=== PATIENT | male | born 1980 | race Caucasian/White ===

== ENCOUNTER 2019-04-09 09:29 | Emergency (ER) | payer OTHER ==
[2019-04-09 09:53] VITALS: BP 123/85; PULSE 107; RESP 20; TEMP 98.1
--- NOTE | 2019-04-09 10:48 | XR ---
EXAMINATION TYPE: XR ankle complete LT DATE OF EXAM: 04/09/2019 COMPARISON: None HISTORY: Pain following down 4 steps yesterday TECHNIQUE: Three-view left ankle FINDINGS: Ankle mortise is intact. There is diffuse soft tissue swelling over the ankle There is a comminuted fracture the distal metadiaphyseal fibula. On the lateral projection a posterior tibial fracture should be considered. IMPRESSION: 1. Comminuted distal metadiaphyseal fibular fracture. 2. Posterior tibial fracture likely present.
--- NOTE | 2019-04-09 10:48 | ED ---
Lower Extremity Injury HPI - General Chief Complaint: Extremity Injury, Lower Stated Complaint: fall, ankle injury Time Seen by Provider: 04/09/19 09:55 Source: patient, family, RN notes reviewed Mode of arrival: wheelchair Limitations: no limitations - History of Present Illness Initial Comments: 38-year-old male presents emergency Department chief complaint left ankle injury. Patient states that he fell off a deck missing 3 steps. Patient fell down onto the ankle. Patient states that he has moderate swelling and pain to left ankle. Patient denies any paresthesias no head injury no loss conscious. - Related Data Allergies Allergy/AdvReac Type Severity Reaction Status Date / Time No Known Allergies Allergy Verified 04/09/19 09:49 Review of Systems ROS Statement: Those systems with pertinent positive or pertinent negative responses have been documented in the HPI. ROS Other: All systems not noted in ROS Statement are negative. Past Medical History Past Medical History: No Reported History History of Any Multi-Drug Resistant Organisms: None Reported Past Surgical History: No Surgical Hx Reported Past Psychological History: No Psychological Hx Reported Smoking Status: Never smoker Past Alcohol Use History: Daily Past Drug Use History: None Reported General Exam Limitations: no limitations General appearance: alert, in no apparent distress Head exam: Present: atraumatic, normocephalic, normal inspection Respiratory exam: Present: normal lung sounds bilaterally. Absent: respiratory distress, wheezes, rales, rhonchi, stridor Cardiovascular Exam: Present: regular rate, normal rhythm, normal heart sounds. Absent: systolic murmur, diastolic murmur, rubs, gallop, clicks Extremities exam: Present: other (Left ankle there is moderate swelling, moderate tenderness to lateral malleolar region, no proximal tib-fib tenderness, neurovascular intact no foot tenderness) Course Vital Signs 04/09/19 09:49 Temperature 98.1 F Pulse Rate 107 H Respiratory 20 Rate Blood Pressure 123/85 O2 Sat by Pulse 95 Oximetry Procedures - Orthopedic Splinting/Casting Injury #1 Side: left Lower Extremity Injury Location: short leg, ankle Lower Extremity Immobilizer: posterior splint, synthetic pre-padded splint Medical Decision Making - Medical Decision Making 38-year-old male presented for left ankle injury. X-rays obtained shows posterior tibial fracture with fibular fracture. Patient was placed in a short leg splint will follow-up with orthopedics return parameters were discussed. Disposition Clinical Impression: Closed left ankle fracture Disposition: HOME SELF-CARE Condition: Stable Instructions (If sedation given, give patient instructions): Ankle Fracture (ED) Additional Instructions: Please return to the Emergency Department if symptoms worsen or any other concerns. Is patient prescribed a controlled substance at d/c from ED?: No Referrals: Luis Dill MD [Primary Care Provider] - 1-2 days Jerry Kapoor MD [Medical Doctor] - 1-2 days Time of Disposition: 11:13
== END 2019-04-09 11:49 | disposition home or self-care (01) ==
LOC: EC 09:29
DX: S82.202A Unspecified fracture of shaft of left tibia, initial encounter for closed fracture (principal); S82.452A Displaced comminuted fracture of shaft of left fibula, initial encounter for closed fracture; W10.9XXA Fall (on) (from) unspecified stairs and steps, initial encounter; Y92.009 Unspecified place in unspecified non-institutional (private) residence as the place of occurrence of the external cause
CPT/HCPCS: 29515; 99283

== ENCOUNTER → 2019-04-18 | Outpatient (CLI) | payer OTHER ==
--- NOTE | 2019-04-19 09:30 | CT ---
EXAMINATION TYPE: CT ankle LT wo con DATE OF EXAM: 04/18/2019 COMPARISON: X-ray 04/09/2019 HISTORY: left ankle pain X [address] DLP: 270.[address] of the left ankle with reconstruction imaging. TECHNIQUE: Unenhanced CT of the left ankle was performed with bone and soft tissue window settings celaya bmitted in the axial coronal and sagittal planes. At a separate workstation 3-D TR imaging was obtai deepak. FINDINGS: There is obliquely oriented and comminuted fracture of the distal fibula with extension into the late ral malleolus. No displacement is noted at 4 mm. Mild angulation is also noted at the fracture site. Adjacent soft tissue swelling noted. There is additional fracture noted to involve the posterior mall eolus with displacement of 1 mm. Nondisplaced extension into the posterior aspect of the medial malle olus noted as well. Adjacent soft tissue swelling noted. No additional fracture seen. Ankle mortise i s intact. IMPRESSION: 1. Likely reactive in comminuted fracture of the distal fibula with extension into the lateral malleo yessy. 2. Additional fracture involving the posterior malleolus with extension into the posterior aspect of the medial malleolus.
== END | disposition home or self-care (01) ==
LOC: RADCTMAIN 16:24
PROVIDERS: ATTEND Orthopaedic Surgery
DX: S82.832A Other fracture of upper and lower end of left fibula, initial encounter for closed fracture (principal); S82.52XA Displaced fracture of medial malleolus of left tibia, initial encounter for closed fracture

== ENCOUNTER → 2019-04-19 | Outpatient (CLI) | payer OTHER ==
--- NOTE | 2019-04-19 15:03 | US ---
LOWER EXTREMITY VENOUS INSUFFICIENCY SIDE PERFORMED: Bilateral 1) Color flow is present and patency is documented in the following vessels. No DVT or SVT is noted . EIV Common Femoral Vein Deep Femoral Vein, not seen on right Femoral Vein Popliteal Vein Proximal Calf Veins, not well seen Greater Saph Vein Upper Small Saph Vein Morbidly obese patient, technically difficult study. 2) There is venous reflux noted at the following venous levels: Right: EIV, CFV, GSV Left: EIV, CFV, GSV, FV dist, LSV, POP VN 3) Incompetent perforators are noted at these levels: IMPRESSION: Suboptimal study due to patient's large body habitus. No obvious acute DVT. Venous insuff iciency bilaterally worse on the left as detailed above.
== END | disposition home or self-care (01) ==
LOC: RADUSWWP 13:56
PROVIDERS: ATTEND Family Medicine
DX: I87.2 Venous insufficiency (chronic) (peripheral) (principal)
CPT/HCPCS: 93970

== ENCOUNTER 2019-04-27 06:01 | Day surgery (SDC) | payer OTHER ==
[2019-04-21 12:39] VITALS: BMI 50.7
[~2019-04-27 06:01] MED LIST: DEXAMETHASONE SOD PHOSPHATE 10 MG/ML 1 ML VIAL IV ONE; LACTATED RINGERS 1,000 ML IV SCH; LIDOCAINE 1% 20 ML VIAL (10MG/ML) FOR IV START INTRADERMA PRN; MIDAZOLAM 2 MG/2 ML VIAL IV PRN; ONDANSETRON 4 MG/2 ML VIAL IVP ONE; SCOPOLAMINE 1.5MG/72HR PATCH TRANSDERM ONE; ceFAZolin 3 GM in SODIUM CHLORIDE 0.9% 100 ML IVPB ONE
[2019-04-27] MEDS ORDERED: MIDAZOLAM 2 MG/2 ML VIAL ONE (07:51)
[2019-04-27] MEDS ORDERED: PROPOFOL 10 MG/ML 20 ML VIAL IV ONE (07:51)
[2019-04-27] MEDS ORDERED: KETAMINE 10 MG/ML 20 ML VIAL ONE (07:51)
[2019-04-27] MEDS ORDERED: HYDROmorphone (PF) 1 MG/ML ONE (07:51)
[2019-04-27] MEDS ORDERED: fentaNYL (PF) 50 MCG/ML 2 ML AMP ONE (07:51)
[2019-04-27] MEDS ORDERED: KETOROLAC 30 MG/ML 1 ML VIAL ONE (07:51)
[2019-04-27] MEDS ORDERED: LACTATED RINGERS 1,000 ML IV ONE (08:51)
[2019-04-27 10:25] VITALS: TEMP 97.5
[2019-04-27] MEDS: HYDROmorphone 0.5 MG/0.5 ML SYRINGE IVP PRN ×4 (10:30→10:55)
--- NOTE | 2019-04-27 10:30 | XR ---
Limited left ankle HISTORY: Fracture 7 intraoperative images document the procedure.
--- NOTE | 2019-04-27 10:30 | P.OP ---
Date of Procedure: 04/27/19 Preoperative Diagnosis: 1. Left trimalleolar variant ankle fracture 2. BMI 50.7 Postoperative Diagnosis: Same Procedure(s) Performed: 1. Open reduction internal fixation lateral malleolus, left ankle 2. Nonoperative management left posterior malleolus 3. Manual application of joint stress by physician for radiography, left ankle 4. Application of short-leg splint by physician, left ankle Anesthesia: GETA, spinal Surgeon: Jerry Kapoor Cellar Pumper #1: Maite Jeffery Estimated Blood Loss (ml): 25 IV fluids (ml): 1,200 Pathology: none sent Condition: stable Disposition: PACU Indications for Procedure: The patient is a very pleasant 38-year-old male with a medical history significant for having a BMI 50.7. He sustained an isolated injury to his left ankle resulting in a comminuted fibula fracture and minimally displaced posterior malleolus fracture. He had a computed tomography scan which showed a comminuted fibula fracture, a minimally displaced posterior malleolus, and a Lefort-Wagstaffe fragment of the distal fibula. The talus remained reduced within the mortise. My recommendation was to perform an exam under anesthesia in the operating room to determine stability and then if the ankle is unstable to perform open reduction internal fixation. The patient agreed with this. We discussed potential risks and complications of surgery including but not limited to risk of anesthesia, superficial infection, deep infection, delayed wound healing, superficial wound necrosis, deep wound necrosis, nonunion of the fracture site, malunion of the fracture site, posterior medical arthritis, failure of the hardware, ongoing pain, chronic swelling, and inability to regain preinjury level of function, DVT, PE, other medical complications, generalized to satisfaction with surgery, and possibly loss of life or limb. The patient understands all these the most common complications there are other less common complications possible. He provided his verbal and written consent to go forward with surgery. He also understands that is higher risk having a complication due to his BMI 50.7. Description of Procedure: The patient was identified in preoperative holding and the correct left ankle was marked with my initials. I reviewed the consent form with the patient and his parents. All of their questions were answered. The patient was then brought back to the operating room by anesthesia. He was positioned on the OR table where a sedation was performed. A timeout was then performed identifying the correct patient, operative extremity, and procedure. Fluoroscopy was then brought in to perform manual external rotation stress x-rays. With external rotation of the left ankle there was widening of the medial clear space compared to the superior clear space and valgus instability of the ankle. A comparison x-ray of the right ankle was taken and showed no evidence of instability. I interpreted his stress x-rays as being unstable and requiring surgery especially considering the fracture characteristics on x-ray and the patient's weight. A tourniquet was applied the proximal aspect of the left leg. All bony prominences were well-padded. A bump was placed under the left buttock internally rotating the leg. A ramp was placed of the left leg to facilitate imaging. The left leg was then prepped and draped in the standard sterile fashion. The leg was then elevated, exsanguinated with an Esmarch bandage, and the tourniquet was inflated to 250 mmHg. Next I began by outlining a longitudinal incision over the lateral aspect of the fibula. Skin incision was made with a scalpel. Dissection was carried down carefully to the subcu cutaneous tissue with tenotomy scissors. The fracture was identified and sharply exposed. Early callus was debrided. There was a medial butterfly fragment and a Lefort Wagstaffe fragment off the distal fibula. All fracture fragments were carefully keyed into place and held with [id number] reduction clamps. Fluoroscopy was used to verify that the mortise was intact and the fibula was out to length. I then placed a 2.7 mm lag screw through the posterior lateral aspect of the distal fragment into the medial butterfly fragment. A precontoured distal fibular plate was then placed over the lateral aspect of the distal fibula. It was held down proximally with nonlocking 3.5 mm screws. Distally a nonlocking 3.5 mm screw was used to bring the plate down to bone and then locking 3.5 mm screws were placed. I attempted to place a single 2.7 mm screw across the Lefort Wagstaffe fragment but it began to fractures the screw was brought down so instead elected to suture repair the fragment. Using a 2.0 mm drill bit to create drill holes and 0 Vicryl sutures I was able to nicely reapproximate the Lefort Wagstaffe fragment. Final fluoroscopic images were taken including a mortise and lateral view as well as a stress x-ray. The fibula appeared to be out to length and the ankle mortise was stable. The wound was then thoroughly irrigated and closed in layers with 0 Vicryl for the deep fascial layer, 2-0 Vicryl for the subcu, and 3-0 nylon Allgower modification of the Donati stitch in the skin. I verified that all instrument, sponge, and sharp counts were correct. A sterile dressing was applied followed by well-padded bulky Almeida splint with the ankle at neutral. The patient was then awoken from his anesthetic, transferred to a gurney, and brought to recovery having tout the procedure well. Maite Jeffery PA-C was required as a skilled operations administrative assistant for patient positioning, surgical exposure, retraction, reduction of fracture, placement of hardware, closure of wound, and application of splint. Plan: The patient is going to discharge home as an outpatient. He is to remain strictly nonweightbearing on his left leg. He was instructed on normal splint maintenance including keeping the splint clean and dry. He will be given oral narcotic pain medications and a stool softener. He'll also be given aspirin for DVT prophylaxis. He'll need follow-up in the office in 2 weeks for splint removal, wound check, and nonweightbearing x-rays of the left ankle.
--- NOTE | 2019-04-27 10:30 | FL ---
Fluoroscopy HISTORY: Ankle fracture 38 seconds fluoroscopy time supplied to the referring clinician. 7 intraoperative C-arm images docum ent the procedure. See dictated report from orthopedic surgery.
--- NOTE | 2019-04-27 11:31 | P.ANPRN ---
Procedure Note - Anesthesia - Nerve Block Performed Left Popliteal Time Out Performed: Yes (11:12) Date of Procedure: 04/27/19 Procedure Start Time: Procedure Stop Time: Location of Patient Procedure: PACU Indication: Acute Post-Operative Pain, Requested by physician (Damian) Sedation Type: Sedate with meaningful contact maintained Preparation: Sterile Prep, Sterile Dressing Position: Right Lateral Catheter: None Needle Types: Pajunk Needle Gauge: 21 (100mm) Injectate: 0.5% Ropivacaine (see comment for volume) (25cc, Decadron 4mg) Blood Aspirated: No Pain Paresthesia on Injection Noted: No Resistance on Injection: Normal Events: Uneventful and Well Tolerated
[2019-04-27 11:40] VITALS: RESP 20
[2019-04-27] MEDS ORDERED: HYDROcodone/APAP 5-325MG 1 EACH TAB PO ONE (11:58)
[2019-04-27 12:07] VITALS: BP 124/80; PULSE 91
== END 2019-04-27 12:29 | disposition home or self-care (01) ==
LOC: OR 06:01
PROVIDERS: ATTEND Orthopaedic Surgery
DX: S82.852A Displaced trimalleolar fracture of left lower leg, initial encounter for closed fracture (principal); W10.9XXA Fall (on) (from) unspecified stairs and steps, initial encounter; Z68.43 Body mass index [BMI] 50.0-59.9, adult
CPT/HCPCS: 27792; 64450; 73600; C1713; J2250; J1100; J0690; J2405; J3010; J1885; J1170 ×2; J2704

== ENCOUNTER → 2021-04-18 | Outpatient (CLI) | payer OTHER ==
--- NOTE | 2021-04-18 16:55 | US ---
EXAMINATION TYPE: US scrotum with doppler. Grayscale and color Doppler Duplex imaging performed of lalo monet scrotum. DATE OF EXAM: 04/18/2021 COMPARISON: NONE CLINICAL HISTORY: R39.89 Other symptoms and signs involving the ya. large left testicle edema EXAM MEASUREMENTS: TESTICLES: Right Testicle: 2.1 x .7 x 1.4 cm Left Testicle: Not visualized due to large hydrocele with thick debris. Scanned whole testicle tried all the probes still unable to visualized. Check left groin area not seen there. EPIDIDYMIS HEAD: Right Epididymis: .8 x .3 x .8 cm Left Epididymis: Not visualized due to hydrocele. Doppler performed to assess for testicular vascularity; color flow and waveforms are seen. There is no evidence of testicular torsion in right testicle. Presence of hydroceles: Yes bilaterally. Left side is large with thick debris seen moving. IMPRESSION: There is large complex left-sided hydrocele. This measures at least 14 cm in length. Left testicle no t identified. There is normal arterial waveform in the right testicle artery. No evidence of torsion on the right side. There is small right-sided hydrocele.
== END | disposition home or self-care (01) ==
LOC: RADUSWWP 15:38
PROVIDERS: ATTEND Family Medicine
DX: N43.3 Hydrocele, unspecified (principal)
CPT/HCPCS: 76870; 93975

== ENCOUNTER → 2021-08-06 | Outpatient (CLI) | payer OTHER ==
[2021-08-06 16:44] LABS: Basophils % (A) 1 %; Eosinophils # (A) 0.2 k/uL (0-0.7); Eosinophils % (A) 3 %; HCT 37.2 % (39.0-53.0); HGB 12.8 gm/dL (13.0-17.5); Lymphocytes # (A) 2.3 k/uL (1.0-4.8); Lymphocytes % (A) 33 %; MCH 28.4 pg (25.0-35.0); MCHC 34.4 g/dL (31.0-37.0); MCV 82.6 fL (80.0-100.0); Mean Platelet Volume 7.1; Monocytes # (A) 0.4 k/uL (0-1.0); Monocytes % (A) 5 %; Neutrophils % (A) 57 %; Platelet Count 248 k/uL (150-450); RDW 12.9 % (11.5-15.5); WBC 7.1 k/uL (3.8-10.6)
[2021-08-06 16:53] LABS: African American GFR (CKD) >90 (>60 ml/min/1.73 sqM); Anion Gap 9 mmol/L; Blood Urea Nitrogen 21 mg/dL (9-20); Calcium 9.1 mg/dL (8.4-10.2); Carbon Dioxide 29 mmol/L (22-30); Chloride 101 mmol/L (98-107); Glucose 109 mg/dL (74-99); Non-African American GFR(CKD) >90 (>60 ml/min/1.73 sqM); Potassium 3.7 mmol/L (3.5-5.1); Sodium 139 mmol/L (137-145)
== END | disposition home or self-care (01) ==
LOC: LABPAT 16:05
PROVIDERS: ATTEND Urology
DX: Z01.812 Encounter for preprocedural laboratory examination (principal); N43.3 Hydrocele, unspecified
CPT/HCPCS: 80048; 85025

== ENCOUNTER 2021-08-11 07:44 | Day surgery (SDC) | payer OTHER ==
[2021-08-06 11:17] VITALS: BMI 48.7
--- NOTE | 2021-08-10 15:05 | P.HPIHPCON ---
History of Present Illness H&P Date: 08/08/21 Chief Complaint: left hydrocele This is a 40 year old male with hx of left sided hydrocele. He is symptomatic from his hydrocele. Discussed with him the option of left hydrocelectomy. Discussed with him risk of bleeding, infection, injury to testicle, risk of needing additional procedure. He understood all risks and agreed to proceed Consent for Procedure: I have explained the operation/procedure to the patient, including the risks, benefits, side effects, alternative therapies (including not receiving the proposed treatment or service), the likelihood of the patient achieving his/her goals, and potential recuperation problems for the procedure/sedation/analgesia, as well as any blood products, if indicated. I also explained to the patient the risks, benefits and side effects of the alternatives, as well as the risks related to not receiving the proposed procedure, care, treatment, or services. Past Medical History Past Medical History: No Reported History Additional Past Medical History / Comment(s): left hydrocele History of Any Multi-Drug Resistant Organisms: None Reported Past Surgical History: Orthopedic Surgery Additional Past Surgical History / Comment(s): ORIF left ankle Past Anesthesia/Blood Transfusion Reactions: No Reported Reaction Additional Past Anesthesia/Blood Transfusion Reaction / Comment(s): . Smoking Status: Never smoker - Past Family History Mother Family Medical History: No Reported History Medications and Allergies Home Medications Medication Instructions Recorded Confirmed Type Phentermine HCl [Adipex-P] 37.5 mg PO DAILY 08/06/21 08/06/21 History Vitamin D(Dose Unknown) 1 tab PO GOLD 08/06/21 08/06/21 History Allergies Allergy/AdvReac Type Severity Reaction Status Date / Time No Known Allergies Allergy Verified 08/06/21 11:10 Surgical - Exam - General no distress, no pain - ENT normal nares, normal mucosa - Respiratory normal expansion, normal respiratory effort Assessment and Plan Assessment: -OR for left hydrocelectomy
[~2021-08-11 07:44] MED LIST changes: -DEXAMETHASONE SOD PHOSPHATE 10 MG/ML 1 ML VIAL IV ONE; +DEXAMETHASONE SOD PHOSPHATE 4 MG/ML 1 ML VIAL IV ONE; +HYDROmorphone 0.5 MG/0.5 ML SYRINGE IVP PRN; -LIDOCAINE 1% 20 ML VIAL (10MG/ML) FOR IV START INTRADERMA PRN; -ceFAZolin 3 GM in SODIUM CHLORIDE 0.9% 100 ML IVPB ONE; +ceFAZolin 3 GM in SODIUM CHLORIDE 0.9% 100 ML IVPB PRN
[2021-08-11] MEDS ORDERED: LIDOCAINE 1% (10MG/ML) FOR IV START INTRADERMA ONE (08:24)
[2021-08-11] MEDS ORDERED: LIDOCAINE 1% INJ 10MG/ML (20 ML MDV) ONE (09:19)
[2021-08-11] MEDS ORDERED: PROPOFOL 10 MG/ML 20 ML VIAL IV ONE (09:19)
[2021-08-11] MEDS ORDERED: SUCCINYLCHOLINE CHLORIDE VIAL 200 MG/10 ML VIAL IV ONE (09:19)
[2021-08-11] MEDS ORDERED: MIDAZOLAM 2 MG/2 ML VIAL ONE (09:19)
[2021-08-11] MEDS ORDERED: fentaNYL (PF) 50 MCG/ML 2 ML AMP ONE (09:19)
[2021-08-11] MEDS ORDERED: BUPIVACAINE (PF) 0.5% 30 ML VIAL SQ ONE (09:42)
[2021-08-11 10:47] VITALS: TEMP 97.2
--- NOTE | 2021-08-11 10:51 | P.OP ---
Date of Procedure: 08/11/21 Preoperative Diagnosis: Left-sided hydrocele Postoperative Diagnosis: left Sided hydrocele, atrophic left testicle Procedure(s) Performed: Left hydrocelectomy Implants: None Anesthesia: KAILAA Surgeon: Jd Polk Estimated Blood Loss (ml): 20 Pathology: other (Left hydrocele sac, necrotic testicle, left hydrocele culture) Condition: stable Disposition: PACU Indications for Procedure: This is a 40 year old male with hx of left sided hydrocele. He is symptomatic from his hydrocele. Discussed with him the option of left hydrocelectomy. Discussed with him risk of bleeding, infection, injury to testicle, risk of needing additional procedure. He understood all risks and agreed to proceed Operative Findings: Thickened hydrocele sac, dark brown fluid was drained from the hydrocele sac. necrotic seminiferous tubules within the left scrotal sac Description of Procedure: Patient was brought to the operating room, general anesthesia was induced. He was prepped and draped in sterile fashion and placed in supine position. An incision was made along the left hemiscrotum, electrocautery was used to dissect the dartos fascia. There was significantly enlarged veins surrounding the hydrocele sac, which were tied off using 2-0 silk. Next the hydrocele sac was delivered into the field. Of note there was significant thickening of the hydrocele sac. Incision was made in the hydrocele sac, and dark brown fluid consistent with old blood was irrigated out. Also the fluid was sent for culture. At this time the hydrocele sac was inspected, there was evidence of necrotic seminiferous tubules within the left scrotal sac. This was removed and sent for pathology. No testicle was identified within the scrotal sac. I was able to palpate the vas, and the cord. But they appear to be terminating within the hydrocele sac, of note at that area tissue was a little more thickened compared to the rest of the hydrocele sac. Given the potential that there might be still some leydig cell within that region decision was made not to excise that area. But the remaining hydrocele sac was excised and sent to pathology. The hydrocele sac edges were cauterized. The cord with the thickened tissue at the excpected location of the left testicle was returned into the scrotum. There was no evidence of bleeding. The dartos fascia was closed using 2-0 Vicryl in 2 layers. The skin was closed using 3-0 chromic. Skin glue was applied to the incision. Local anesthetic was infiltrated. Patient tolerated the procedure well was taken to recovery in stable condition
[2021-08-11 11:02] VITALS: RESP 16
[2021-08-11 11:22] VITALS: PULSE 77
[2021-08-11 11:58] VITALS: BP 117/82
== END 2021-08-11 12:12 | disposition home or self-care (01) ==
LOC: OR 07:44
PROVIDERS: ATTEND Urology
DX: N43.3 Hydrocele, unspecified (principal); N50.0 Atrophy of testis
CPT/HCPCS: 55040; 87070; 87205; 87075; J2250; J0330; J1100; J0690; J2405; J2001; J3010; J2704; 88302; 88305

== ENCOUNTER 2023-05-05 06:33 | Emergency (ER) | payer OTHER ==
--- NOTE | 2023-05-05 07:12 | ED ---
Back Pain HPI - General Chief Complaint: Back Pain/Injury Stated Complaint: Vomiting, Lower Back pain Time Seen by Provider: 05/05/23 06:36 Source: patient, RN notes reviewed Mode of arrival: ambulatory Limitations: no limitations - History of Present Illness Initial Comments: 42-year-old male presents emergency Department chief complaint left flank pain. Patient states that woke him up around 3 AM. Patient states for intense pain associated nausea vomiting. He states he did have some hesitancy with urination. Patient states that his pain has now improved almost resolved. He did have an episode couple days ago similar to this. Patient has no history kidney stones denies any trauma nothing makes the pain feel better or worse. - Related Data Home Medications Medication Instructions Recorded Confirmed Phentermine HCl [Adipex-P] 37.5 mg PO DAILY 08/06/21 08/11/21 Vitamin D(Dose Unknown) 1 tab PO GOLD 08/06/21 08/11/21 Previous Rx's Medication Instructions Recorded Cephalexin [Keflex] 500 mg PO Q8HR #15 cap 08/11/21 Ketorolac [Toradol] 10 mg PO Q6HR PRN #15 tab 08/11/21 Cephalexin [Keflex] 500 mg PO Q8HR #21 cap 05/05/23 Allergies Allergy/AdvReac Type Severity Reaction Status Date / Time No Known Allergies Allergy Verified 08/11/21 08:08 Review of Systems ROS Statement: Those systems with pertinent positive or pertinent negative responses have been documented in the HPI. ROS Other: All systems not noted in ROS Statement are negative. Past Medical History Past Medical History: No Reported History Additional Past Medical History / Comment(s): left hydrocele History of Any Multi-Drug Resistant Organisms: None Reported Past Surgical History: Orthopedic Surgery Additional Past Surgical History / Comment(s): ORIF left ankle Past Anesthesia/Blood Transfusion Reactions: No Reported Reaction Additional Past Anesthesia/Blood Transfusion Reaction / Comment(s): . Past Psychological History: No Psychological Hx Reported Smoking Status: Never smoker - Past Family History Mother Family Medical History: No Reported History General Exam Limitations: no limitations General appearance: alert, in no apparent distress Head exam: Present: atraumatic, normocephalic, normal inspection Eye exam: Present: normal appearance, PERRL, EOMI. Absent: scleral icterus, conjunctival injection, periorbital swelling ENT exam: Present: normal exam, normal oropharynx, mucous membranes moist Neck exam: Present: normal inspection, full ROM. Absent: tenderness, meningismus, lymphadenopathy Respiratory exam: Present: normal lung sounds bilaterally. Absent: respiratory distress, wheezes, rales, rhonchi, stridor Cardiovascular Exam: Present: regular rate, normal rhythm, normal heart sounds. Absent: systolic murmur, diastolic murmur, rubs, gallop, clicks GI/Abdominal exam: Present: soft, normal bowel sounds. Absent: distended, tenderness, guarding, rebound, rigid Back exam: Absent: CVA tenderness (R), CVA tenderness (L) Neurological exam: Present: alert Skin exam: Present: warm, dry, intact, normal color. Absent: rash Course Vital Signs 05/05/23 05/05/23 06:37 07:21 Temperature 98.2 F 98.6 F Pulse Rate 98 72 Respiratory 19 18 Rate Blood Pressure 150/112 128/80 O2 Sat by Pulse 94 L 94 L Oximetry Medical Decision Making - Medical Decision Making Was pt. sent in by a medical professional or institution (, PA, X RAY DEVELOPING MACHINE OPERATOR, urgent care, hospital, or fdc...) When possible be specific @ -No Did you speak to anyone other than the patient for history (EMS, parent, family, police, friend...)? What history was obtained from this source @ -No Did you review nursing and triage notes (agree or disagree)? Why? @ -I reviewed and agree with nursing and triage notes Were old charts reviewed (outside hosp., previous admission, EMS record, old EKG, old radiological studies, urgent care reports/EKG's, fdc records)? Report findings @ -No old charts were reviewed Differential Diagnosis (chest pain, altered mental status, abdominal pain women, abdominal pain men, vaginal bleeding, weakness, fever, dyspnea, syncope, headache, dizziness, GI bleed, back pain, seizure, CVA, palpatations, mental health, musculoskeletal)? @ -Differential Abdominal Pain Men: Appendicitis, cholecystitis, diverticulosis, ischemic bowel, pancreatitis, hepatitis, UTI, gastroenteritis, AAA, incarcerated hernia, bowel obstruction, constipation, inflammatory bowel, hepatitis, peptic ulcer disease, splenic infarction, perforated viscus, testicular torsion, this is not meant to be an all-inclusive listble EKG interpreted by me (3pts min.). @ -[None X-rays interpreted by me (1pt min.). @ -None done CT interpreted by me (1pt min.). @ -CT and pelvis shows 5 mm stone within the bladder, mild hydronephrosis, there is noted a inguinal hernia, lymphadenopathy. U/S interpreted by me (1pt. min.). @ -None done What testing was considered but not performed or refused? (CT, X-rays, U/S, labs)? Why? @ -None What meds were considered but not given or refused? Why? @ -None Did you discuss the management of the patient with other professionals (professionals i.e. DrSonido, PA, X RAY DEVELOPING MACHINE OPERATOR, lab, RT, psych nurse, hospital social worker, diamond die maker, teacher, investment officer, family preservation caseworker)? Give summary @ -No Was smoking cessation discussed for >3mins.? @ -No Was critical care preformed (if so, how long)? @ -No Were there social determinants of health that impacted care today? How? (Homelessness, low income, unemployed, alcoholism, drug addiction, transportation, low edu. Level, literacy, decrease access to med. care, care home, rehab)? @ -No Was there de-escalation of care discussed even if they declined (Discuss DNR or withdrawal of care, Hospice)? DNR status @ -No What co-morbidities impacted this encounter? (DM, HTN, Smoking, COPD, CAD, Cancer, CVA, ARF, Chemo, Hep., AIDS, mental health diagnosis, sleep apnea, morbid obesity)? @ -None Was patient admitted / discharged? Hospital course, mention meds given and route, prescriptions, significant lab abnormalities, going to OR and other pertinent info. @ -Discharge pain is resolved patient to passed stone. Patient has noted 27 white cells in his urinalysis this may be contaminant versus infection patient will be placed on oral antibiotics Undiagnosed new problem with uncertain prognosis? @ -No Drug Therapy requiring intensive monitoring for toxicity (Heparin, Nitro, Insulin, Cardizem)? @ -No Were any procedures done? @ -No Diagnosis/symptom? @ -Kidney stone Acute, or Chronic, or Acute on Chronic? @ -[Acute Uncomplicated (without systemic symptoms) or Complicated (systemic symptoms)? @ -Uncomplicated Side effects of treatment? @ -No Exacerbation, Progression, or Severe Exacerbation? @ -No Poses a threat to life or bodily function? How? (Chest pain, [place], [place], pneumonia, PE, COPD, DKA, ARF, appy, cholecystitis, CVA, Diverticulitis, Homicidal, Suicidal, threat to staff... and all critical care pts) @ -No - Lab Data Lab Results 05/05/23 Range/Units 07:25 Urine Color Yellow Urine Appearance Clear (Clear) Urine pH 5.0 (5.0-8.0) Ur Specific [place] 1.017 (1.001-1.035) Urine Protein Trace H (Negative) Urine Glucose (UA) Negative (Negative) Urine Ketones Negative (Negative) Urine Blood Large H (Negative) Urine Nitrite Negative (Negative) Urine Bilirubin Negative (Negative) Urine Urobilinogen <2.0 (<2.0) mg/dL Ur Leukocyte Esterase Large H (Negative) Urine RBC 62 H (0-5) /hpf Urine WBC 27 H (0-5) /hpf Ur Squamous Epith Cells 2 (0-4) /hpf Urine Mucus Occasional H (None) /hpf Disposition Clinical Impression: Kidney stone Disposition: HOME SELF-CARE Condition: Stable Instructions (If sedation given, give patient instructions): Kidney Stones (ED) Additional Instructions: Please return to the Emergency Department if symptoms worsen or any other concerns. Prescriptions: Cephalexin [Keflex] 500 mg PO Q8HR #21 cap Is patient prescribed a controlled substance at d/c from ED?: No Referrals: None,Stated [Primary Care Provider] - 1-2 days Time of Disposition: 08:13
[2023-05-05 07:24] VITALS: RESP 18
--- NOTE | 2023-05-05 07:33 | CT ---
EXAMINATION TYPE: CT abdomen pelvis wo con DATE OF EXAM: 05/05/2023 COMPARISON: None HISTORY: 42-year-old male left flank pain CT DLP: 3456 mGycm. Automated exposure control for dose reduction was used. TECHNIQUE: Contiguous axial scanning of the abdomen and pelvis without IV contrast. Coronal and sagit leila reconstructions performed. FINDINGS: LUNG BASES: No significant abnormality is appreciated. LIVER/GB: Liver enlarged at 22.3 cm craniocaudal. Mild mesenteric attenuation of the hepatic parenchy ma. Gallbladder mildly hydropic measuring 4.7 cm wide. No surrounding inflammation seen. PANCREAS: No significant abnormality is seen. SPLEEN: No significant abnormality is seen. ADRENALS: No significant abnormality is seen. KIDNEYS: There is a 3 mm nonobstructive left renal calculus. There is mild left-sided hydronephrosis and mild asymmetric dilatation of the left ureter. No ureteral stone is identified. Right kidney show s no gross abdomen body by noncontrast CT. BOWEL: No significant abnormality is seen. Scattered mild stool. Redundant sigmoid colon. LYMPH NODES: No suspicious greater than 1 cm lymph node is identified in the abdomen. OTHER: Small to moderate-sized fatty umbilical hernia measuring 3.3 x 4.0 cm and extending through a 1.7 cm wide abdominal wall defect. Additional small ventral midline supraumbilical omental fat-contai homar hernia. This measures 3.7 x 3.1 cm extending through a narrow 1.1 cm wide neck. Mild fat strandi ng within the hernia sac could represent omental vessels or mild inflammation. PELVIS: Moderate circumferential bladder wall thickening. A dependent 5 mm bladder calculus is noted probably recently passed from the left ureter. No abnormal fluid collection in the pelvis. There is n odularity at the upper right femoral chain near the inguinal region measuring up to 5.1 x 3.1 cm, axi al image 206 and coronal image 44. Venous ectasia is suspected. Lymphadenopathy should be excluded. BONES: Moderate degenerative disc disease lower thoracic spine. Facet arthropathy lower lumbar spine. Mild degenerative change of the hips. IMPRESSION: 1. Mild left-sided hydronephrosis. No ureteral stone is identified. However, there is a 5 mm calculu s within the lumen of the bladder, probably recently passed from the left ureter. Clinically correlat e. Additional nonobstructive 3 mm left renal calculus. 2. Moderate circumferential bladder wall thickening probably chronic bladder wall hypertrophy. Corre late to exclude cystitis. 3. [id number] sized fatty umbilical hernia measuring 4.0 cm wide. Additional small omental fa t-containing supraumbilical hernia measuring 3.7 cm. This extends through a narrow 1.1 cm wide abdomi nal wall defect. Mild stranding within the hernia sac could represent omental vessels versus mild inf lammation. Correlate for any focal pain here. 4. Nodularity near the right inguinal region and upper femoral chain measuring up to 5.1 x 3.1 cm. F indings probably reflect venous ectasia and varicosities. Recommend assessment with physical exam fin dings targeted ultrasound to exclude abnormal lymphadenopathy. 5. Hepatomegaly at 22.3 cm with at least moderate hepatic steatosis. 6. Hydropic gallbladder probably due to fasting state.
[2023-05-05 08:01] LABS: Appearance,Urine Clear (Clear); Bilirubin,Urine Negative (Negative); Blood,Urine Large (Negative); Color,Urine Yellow; Glucose,Urine (UA) Negative (Negative); Ketones,Urine Negative (Negative); Leukocyte Esterase,Urine Large (Negative); Mucus,Urine Occasional /hpf; Nitrite,Urine Negative (Negative); Protein,Urine Trace (Negative); RBC,Urine 62 /hpf (0-5); Specific Gravity,Urine 1.017 (1.001-1.035); Squamous Epithelial Cell,Urine 2 /hpf (0-4); Urobilinogen,Urine <2.0 mg/dL (<2.0); WBC,Urine 27 /hpf (0-5)
[2023-05-05 08:28] VITALS: BP 139/91; PULSE 78; TEMP 98.2
== END 2023-05-05 08:28 | disposition home or self-care (01) ==
LOC: EC 06:33
DX: N13.2 Hydronephrosis with renal and ureteral calculous obstruction (principal)
CPT/HCPCS: 74176; 81001; 87086; 99284